=== PATIENT | male | born 1985 | race Caucasian/White ===

== ENCOUNTER 2024-07-19 16:37 | Emergency (ER) | payer BC, SELFPAY ==
[2024-07-19 16:41] VITALS: BP 112/64; PULSE 86; RESP 18; TEMP 36.7; O2SAT 98
--- NOTE | 2024-07-19 16:45 | DI.RAD_ITS ---
Exam(s) XR CHEST 2V PA LATERAL EXAM: XR CHEST 2V PA LATERAL CLINICAL HISTORY: cough. TECHNIQUE: 2D digital imaging was performed. COMPARISON: No exams were available for comparison FINDINGS: 2 views: Heart size is normal. The mediastinum is not widened. Lungs are clear. No infiltrates nor pleural effusions. Central retrocardiac densities probably an hiatal hernia. IMPRESSION: No acute pulmonary findings.Hiatal hernia. DATA REPOSITORY: RADIATION DOSE DELIVERED:
--- NOTE | 2024-07-19 17:00 | ED.GENADUL_ITS ---
Discharge Plan Disposition Patient Disposition: Home Condition: Stable Discharge Details Clinical Impression: Alcoholism Primary Care Provider: Unknown,Unknown ED Provider: Lalito Elena Home Meds and New Rx's Prescriptions: No Action No Known Home Meds Discharge Instructions Additional Instructions: You should try and cut down and stop drinking, you were given resources if you decide you want to see rehab for your drinking. You have a hiatal hernia which is when part of your stomach sticks up through the diaphragm. You've likely had this for a long time, you can discuss with your primary care provider if you continue to have frequent burping and/or acid reflux. Follow-up with your primary care provider within 1 to 2 weeks. You can take [id number] sim ethicone and also omeprazole. If you feel more ill or feel you are suffering from emergent medical process return to the emergency department for reevaluation. HPI General Mode of arrival: ambulatory . Date/Time Provider Initiated Documentation: 07/19/24 16:39 . Limitations to Documentation: no limitations . Information obtained by: patient and family . History of Present Illness 39 ye ar old M presents to the emergency department with the chief complaint of alcohol intoxication, described as moderate, and it has been constant. No relieving factors improve symptom(s), No exacerbating factors reported . Patient notes other (burping). Patient did receive the following treatments prior to arrival, none Related Data Home Medications ?Medication ?Instructions ?Recorded ?Confirmed Unknown [No Known Home Meds] 07/19/24 07/19/24 Allergies Allergy/AdvReac Type Severity Reaction Status Date / Time No Known Allergies Allergy Unverified 07/19/24 16:51 General Stated Complaint: DrugWithdr/MAT CARLOS: 3 Review of Systems All systems reviewed & are unremarkable except as noted in HPI and below Constitutional Constitutional: Denies chills, Denies fever(s) and Denies weakness Cardiovascular Cardiovascular: Denies chest pain and Denies dyspnea Respiratory Respiratory: Denies cough and Denies dyspnea Gastrointestinal Gastrointestinal: Denies abdominal pain, Reports nausea and Denies vomiting Neurologic Neurologic: Denies weakness Psychiatric Psychiatric: Denies depression Exam Const General: no acute distress Orientation: alert HENMT Head: normal to inspection Ears: external ears normal General nose exam: external nose normal Mouth: moist mucous membranes Eyes General: appearance normal, both eyes and all related structures Neck Neck: normal visual inspection Resp Effort & Inspection: normal respiratory effort and able to speak in complete sentences Cardio Rate: regular rate Skin General skin exam: no rashes or lesions noted Neuro General: patient alert, patient oriented x3 and no focal motor deficits Speech: other (mild slurring of speech) Extrem General: normal to inspection Psych Mental Status: mental status grossly normal Course Vital Signs Vital signs: Vital Signs Temperature 36.7 C 07/19/24 16:41 Pulse 86 07/19/24 16:41 Respiratory Rate 18 07/19/24 16:41 Blood Pressure 112/64 07/19/24 16:41 Pulse Oximetry 98 07/19/24 16:41 Temperature 36.7 C 07/19/24 16:41 Temperature Source Oral 07/19/24 16:41 Pulse 86 07/19/24 16:41 Respiratory Rate 18 07/19/24 16:41 Blood Pressure 112/64 07/19/24 16:41 Blood Pressure Position Sitting 07/19/24 16:41 Pulse Oximetry 98 07/19/24 16:41 Oxygen Delivery Method Room Air 07/19/24 16:41 Oxygen Flow Rate 0 07/19/24 16:41 Pain Level 0 07/19/24 16:41 Medical Decision Making 39-year-old male who denies any chronic medical problems though he does drink over a liter of hard alcohol specifically to use vodka a day comes in with his fianc?e who are hoping to be admitted for medical detox. Patient notes that he does get episodes of burps and nausea when he is intoxicated. Denies any severe abdominal pain or vomiting or fevers. He also has a chronic cough especially in the morning, he states he recently quit smoking. He denies any fevers or difficulty breathing. He is alert oriented x 4 with mild slurring of his words and does have smell of alcohol and admits to drinking earlier today. He has no SI or HI, no signs of trauma to the head, soft abdomen without any tenderness. Suspect gastritis from his heavy alcohol use, will treat with simethicone, PPI and Zofran. Given his cough will obtain an x-ray though I suspect this could be a viral URI versus previous smoking cough. Will also have [employer] coach speak with the patient and fiance X-ray unremarkable, he is stable. He met with head boys golf coach and he is not interested in seeking placement in detox at this current time. They offered resources and will follow-up with him by phone call. He is stable for discharge and advised to follow-up with PCP as well. Differential Diagnosis Differential Diagnosis: Alcoholism, gastritis, URI Quality:SDOH Health Related Social Needs: No Data to Display PFSH All Active Problems (Updated 07/19/24 @ 18:24 by Lalito Elena MD) Alcoholism (Acute) Social History Smoking/Tobacco Use Status: Former Tobacco Use Tobacco: How many years used: 2 Smoking risk assessment performed?: Yes Alcohol Intake: current Alcohol Intake frequency: 3 or more drinks per day Alcohol type: hard liquor Drug use: Never Details: Intoxicated now. Last drink before coming in. Housing: house [facility] Have you Been Recently Intoxicated or Drunk Within the Last 30 days?: Yes Have you Ever Experienced Previous Episodes of Alcohol Withdrawal?: Yes Have you ever Experienced Withdrawal Seizures?: Unable to Obtain Have you ever Experienced Delirium Tremens(DT)s?: Yes Have you ever undergone Alcohol Rehabilitation Treatment (i.e, inpt ot outpatient treatment programs)?: Yes Have you ever Experienced Blackouts?: Yes Have you ever Combined Alcohol with other Downers within the last 90 days?: No Have you ever Combined Alcohol with any other Substance of Abuse during the last 90 days?: No Positive Blood Alcohol level on Presentation? [PCS.BAL]: Yes Evidence of Increased Autonomic Activity (i.e. HR>120, tremor, sweating, agitation, nausea)?: No Result: 6
[2024-07-19] MEDS: Omeprazole 20 MG CAPCR PO (17:05)
[2024-07-19] MEDS: Ondansetron O.D.T. 4 MG TABEF PO (17:05)
[2024-07-19] MEDS: Simethicone 80 MG CHEW 40 MG PO (17:05)
== END 2024-07-19 18:40 | disposition home or self-care (01) ==
LOC: ER 18:34
PROVIDERS: Emergency Provider Emergency Medicine
DX: R05.3 Chronic cough; K44.9 Diaphragmatic hernia without obstruction or gangrene; Z87.891 Personal history of nicotine dependence
CPT/HCPCS: 99283; 71046